=== PATIENT | female | born 1945 ===

== ENCOUNTER 2017-11-17 09:16 | Day surgery (SDC) | payer OTHER | END 2017-11-17 15:00 | disposition home or self-care (01) | LOC: AMB-ENDOS 09:16 | DX: K57.30 Diverticulosis of large intestine without perforation or abscess without bleeding (principal); K62.89 Other specified diseases of anus and rectum; K64.1 Second degree hemorrhoids; Z12.11 Encounter for screening for malignant neoplasm of colon ==